=== PATIENT | female | born 1985 | race Hispanic/Latino ===

== ENCOUNTER 2025-03-08 01:06 | Emergency (ER) | payer OTHER, SELFPAY ==
[2025-03-08] VITALS (11 sets, daily range): BP systolic 115–164; BP diastolic 80–102; BMI 18.3
--- NOTE | 2025-03-08 04:09 | EDRN ---
Patient in room, awake. When i entered room she pulled the blanket over her head. She would not respond to any questions, offered drink, food and restroom, patient would not respond.
--- NOTE | 2025-03-08 05:34 | EDRN ---
crisis into see patient, pt offered very little information, was not staying awake for questions. pt did agree to blood draw, iv cath inserted w/o incident.
[2025-03-08 05:46] LABS: Hematocrit 33.4 % (37.0-47.0); Hemoglobin 11.3 g/dL (12.0-16.0); Mean Corp Hgb Conc. 33.8 g/dL (33.0-37.0); Mean Corpuscular Volume 88.4 fL (81.0-99.0); Nucleated Red Blood Cells % 0 %; Platelet Count 236 10^3/uL (130-400); Red Cell Dist. Width 12.5 % (11.5-14.5)
[2025-03-08 06:00] LABS: HCG, Serum Qualitative Screen Negative
[2025-03-08 06:04] LABS: ALT (SGPT) 16 U/L (0-35); AST (SGOT) 18 U/L (14-36); Albumin 4.2 g/dl (3.5-5.0); Alkaline Phosphatase 54 U/L (38-126); Blood Urea Nitrogen 17 mg/dl (7-17); Calcium 9.1 mg/dl (8.4-10.2); Carbon Dioxide 24 mmol/L (22-30); Chloride 109 mmol/L (98-107); Estimated Creatinine Clearance 89 ml/min; Glucose 68 mg/dl (70-99); Potassium 3.9 mmol/L (3.5-5.1); Sodium 139 mmol/L (135-145); Total Protein 6.8 g/dl (6.3-8.2); eGFR > 60.00
--- NOTE | 2025-03-08 07:09 | ED.GENMED ---
History of Present Illness
<Bharathi Bernal, DO - Last Filed: 03/09/25 22:34>
General
Chief Complaint: Weakness
Source: patient, ambulance crew and police
Time Seen by Provider: 03/08/25 04:44
Nursing documentation reviewed up to this point in time: agreed with
History of Present Illness
History of Present Illness:
Note:
CHIEF COMPLAINT(S)
Uncooperative behavior and suspected homelessness.
HISTORY OF PRESENT ILLNESS
The patient is a 39-year-old female who was brought to the emergency department by police. She was found in an uncooperative state, possibly homeless. According to the police, she was at a utility box and was non-compliant with their requests to
move along. The patient has not been communicative about any symptoms or specific needs. There is no reported history of alcohol consumption or drug use at the time of presentation. The police have informed that she is medically clear for discharge.
ADDITIONAL HISTORY OBTAINED FROM SOURCES OTHER THAN THE PATIENT
Per the police, the patient was found near a utility box and was non-compliant with their attempts to move her. She was cited and brought to the emergency department for evaluation. The police have no further medical history or additional
information regarding the patient.
SOCIAL DETERMINANTS AFFECTING HEALTH
The patient appears to be homeless. Efforts to communicate and obtain further social history have been unsuccessful due to the patient�s uncooperative behavior.
PHYSICAL EXAM
General: Alert but uncooperative, no acute distress noted., uncooperative
Skin: Warm, dry.
Head: Normocephalic, atraumatic.
Neck: Supple, trachea midline.
Eye, Ears, Nose, Mouth and Throat: Oral mucosa moist.
Cardiovascular: Normal peripheral perfusion, No edema.
Respiratory: Respirations are non-labored.
Gastrointestinal: Abdomen nondistended.
Back: Normal range of motion, Normal alignment.
Musculoskeletal: Normal range of motion, normal strength.
Neurological: Alert and oriented to person, reluctant to engage in more detailed assessment.
Psychiatric: Appears uncooperative, mood and affect difficult to assess.
PLAN
The patient is medically clear for discharge as per police report. Recommendations include providing information on local shelters or resources for homelessness. Further psychiatric evaluation could be beneficial should the patient become
cooperative.
DIFFERENTIAL DIAGNOSIS
The Differential Diagnosis includes, in no particular order and is not limited to:
1. Acute Psychiatric Episode
2. Substance Use Disorder
3. Delirium
4. Dementia
5. Depression
6. Acute Stress Reaction
7. Alcohol Withdrawal
8. Anxiety Disorder
9. Personality Disorder
10. Schizophrenia
Disposition:
SUMMARY OF ENCOUNTER
The patient, a 39-year-old female, was brought to the emergency department by police after being found uncooperative near a utility box. She was not communicative regarding symptoms or specific needs. The police confirmed that the patient was
medically clear for discharge. She appeared to be homeless, which was a social determinant affecting her health. Efforts to obtain further history were unsuccessful due to her uncooperative behavior. After evaluation, the patient was deemed
uncooperative throughout much of the day and was ultimately discharged home.
DISPOSITION
Discharge.
PLAN
The patient is medically cleared for discharge. Recommendations include providing information on local shelters or resources for homelessness. Further psychiatric evaluation could be beneficial should the patient become cooperative.
MEDICAL DECISION MAKING
-Complexity of Data Reviewed: Chronic conditions affecting care [Social determinants of health; homelessness]. Differential diagnosis included Acute Psychiatric Episode, Substance Use Disorder, Delirium, Dementia, Depression, Acute Stress Reaction,
Alcohol Withdrawal, Anxiety Disorder, Personality Disorder, Schizophrenia.
-Data:
Category 2
Clinical information was obtained from an independent historian: Input from police regarding the patients medical clarity for discharge.
-Risk: Care significantly affected by Social Determinants of Health: The patients apparent homelessness impacted her overall management and disposition decisions.
DIAGNOSIS
Uncooperative behavior, Z91.19; Homelessness, Z59.0.
Past History
<Bharathi Bernal DO - Last Filed: 03/09/25 22:34>
Past History
ED Past Medical History: CVA, Seizures, Psychiatric (Prior suicide attempt, anxiety, depression) and Other (Cerebral palsy, schizencephaly L frontal)
ED Past Surgical History: ( x 2)
Social History
Tobacco: Non-smoker
Alcohol: None
Drug: None
Living: with family
Employment: Employed
Family History
Family History: CAD
Phy Exam
<Bharathi Bernal, DO - Last Filed: 03/09/25 22:34>
Physical Exam
Physical Exam:
.
Course
<Bharathi Bernal, DO - Last Filed: 03/09/25 22:34>
Orders/Labs/Results
Orders:
Orders
03/08/25 04:57
Crisis Consult Urgent
Reason for Consult: mh issues
03/08/25 05:22
Cardiac Monitoring- Treatment ONCE
IV Insert/Care/Rem.- Treatment PRN
Pulse Ox/spot Check [RESP] Urgent
Quantity: 1
03/08/25 05:23
Test Result ONCE
03/08/25 05:27
Alcohol Urgent
Complete Blood Count/With Diff Urgent
Comprehensive Metabolic Panel Urgent
HCG, Serum Qualitative Screen Urgent
Comment: Notify provider if positive test present
03/08/25 10:18
Case Management Consult ONCE
Case Management Consult: Discharge Planning
Abnormal Lab Results
03/08/25
05:27
RBC 3.78 L 10^6/uL
(4.20-5.40)
Hgb 11.3 L g/dL
(12.0-16.0)
Hct 33.4 L %
(37.0-47.0)
Eosinophils % 7.5 H %
(0-6)
Chloride 109 H mmol/L
(98-107)
Creatinine 0.5 L mg/dL
(0.6-1.0)
Glucose 68 L mg/dl
(70-99)
03/08/25 05:27
03/08/25 05:27
Vital Signs
Initial and Last Documented VS:
Initial Vital Signs
Temp Pulse Resp BP Pulse Ox
98.2 F 54 16 164/96 100
03/08/25 01:15 03/08/25 01:15 03/08/25 01:15 03/08/25 01:15 03/08/25 01:15
Last Documented Vital Signs
Temp Pulse Resp BP Pulse Ox
98.2 F 96 16 124/92 100
03/08/25 01:15 03/08/25 11:15 03/08/25 02:19 03/08/25 11:00 03/08/25 10:00
<Felipe Pizarro MD - Last Filed: 03/08/25 12:07>
Orders/Labs/Results
Orders:
Orders
03/08/25 04:57
Crisis Consult Urgent
Reason for Consult: mh issues
03/08/25 05:22
Cardiac Monitoring- Treatment ONCE
IV Insert/Care/Rem.- Treatment PRN
Pulse Ox/spot Check [RESP] Urgent
Quantity: 1
03/08/25 05:23
Test Result ONCE
03/08/25 05:27
Alcohol Urgent
Complete Blood Count/With Diff Urgent
Comprehensive Metabolic Panel Urgent
HCG, Serum Qualitative Screen Urgent
Comment: Notify provider if positive test present
03/08/25 10:18
Case Management Consult ONCE
Case Management Consult: Discharge Planning
Abnormal Lab Results
03/08/25
05:27
RBC 3.78 L 10^6/uL
(4.20-5.40)
Hgb 11.3 L g/dL
(12.0-16.0)
Hct 33.4 L %
(37.0-47.0)
Eosinophils % 7.5 H %
(0-6)
Chloride 109 H mmol/L
(98-107)
Creatinine 0.5 L mg/dL
(0.6-1.0)
Glucose 68 L mg/dl
(70-99)
03/08/25 05:27
03/08/25 05:27
Vital Signs
Initial and Last Documented VS:
Initial Vital Signs
Temp Pulse Resp BP Pulse Ox
98.2 F 54 16 164/96 100
03/08/25 01:15 03/08/25 01:15 03/08/25 01:15 03/08/25 01:15 03/08/25 01:15
Last Documented Vital Signs
Temp Pulse Resp BP Pulse Ox
98.2 F 96 16 124/92 100
03/08/25 01:15 03/08/25 11:15 03/08/25 02:19 03/08/25 11:00 03/08/25 10:00
<Bharathi Bernal DO - Last Filed: 03/09/25 22:34>
*Pulse Oximetry
SaO2: 100
Oxygen Mode of Delivery: Room air
Patient hypoxic: no
*Critical Care Note
Total Time (30-74mins, 75-104mins- exclusive of procedures): Not Applicable
<Felipe Pizarro MD - Last Filed: 03/08/25 12:07>
Update Note
Update Note:
1015.... Patient sleeping but arousable and alert. Will speak. Slight slurred speech. States she has no acute complaints. States she came up here yesterday for a court appearance. States she has nowhere to live at this time. Appears medically
stable. Will get case management involved. Seen by case management. Patient is medically stable. Mom is coming to [place]le pumper
ED Attending Note
<Bharathi Bernal, DO - Last Filed: 03/09/25 22:34>
-
Portions of this chart may have been created with voice recognition software.� Occasional wrong word or��sound alike� substitutions may have occurred due to the inherent limitations of voice recognition software.
Discharge Plan
Departure
Patient Disposition: Home (Routine Discharge)
Date of Disposition: 03/08/25
Time of Disposition: 12:06
Patient with high blood pressure during this ER visit?: Yes
Discharge Problem:
Transient mental status change
Prescriptions:
No Action
cyclobenzaprine 10 MG tablet
10 mg PO TIDPRN PRN (Reason: muscle spasms)
silver sulfadiazine [SSD] 400 GRAM cream
1 applic topical BID
haloperidol 5 MG tablet
5 mg PO DAILYPRN PRN (Reason: taken@ 1700, if hearing voices)
haloperidol 5 MG tablet
5 mg PO BID@0700,1200
quetiapine 100 MG tablet
200 mg PO HS
trazodone 150 MG tablet
150 mg PO HS
hydroxyzine HCl 25 MG tablet
25 mg PO DAILYPRN PRN (Reason: allergies)
albuterol sulfate 1 PUFF HFA aerosol inhaler
1 puff inhalation R Q4HPRN PRN (Reason: sob/wheeze)
fluticasone propionate 1 SPRAY spray,suspension
1 spray intranasal DAILYPRN PRN (Reason: allergies)
aripiprazole 10 MG tablet
10 mg PO HS
clonazepam 1 MG tablet
2 mg PO TID
diazepam [Valium] 10 MG tablet
10 mg PO Q4 PRN (Reason: pain)
carbamazepine 100 MG tablet extended release 12 hr
200 mg PO BID Qty: 60 0RF
lacosamide [Vimpat] 100 MG tablet
100 mg PO BID Qty: 60 0RF
cyclobenzaprine 10 MG tablet
10 mg PO TIDPRN PRN (Reason: muscle pain) Qty: 13 0RF
ibuprofen 600 MG tablet
600 mg PO Q6HPRN PRN (Reason: pain) Qty: 20 0RF
albuterol sulfate [Proventil HFA] 90 MCG/PUFF HFA aerosol inhaler
1 puff inhalation Q4HPRN PRN (Reason: shortness of breath) Qty: 1 0RF
Referrals:
UNKNOWN,NO INTERVIEW [Family Provider]
Activity Restrictions/Additional Instructions:
Follow-up with your regular physician
Return with any concerning issues including weakness fever chills chest pain shortness of breath suicidal ideation or plan or any other concerning issues
Interventions
Interventions:
*Risk Screen - Suicide Last Done: 03/08/25 01:22
*General Assessment Last Done: 03/08/25 01:22
*Neglect/Abuse Screening Last Done: 03/08/25 01:22
*ED- Fall Risk Assessment Last Done: 03/08/25 01:22
*ED COVID-19 Vaccine History Last Done: 03/08/25 01:22
*Nursing Disposition Last Done: 03/08/25 12:10
ED- Cardiac Assessment Last Done: 03/08/25 01:40
ED- Neurological Assessment Last Done: 03/08/25 01:40
ED- Pulmonary Assessment Last Done: 03/08/25 01:40
Discharge Date and Time
Discharge Date/Time: 03/08/25 12:11
Print Language: MOHAWK
--- NOTE | 2025-03-08 12:03 | CM ---
ED CM consult for homelessness
Bedside meeting with pt
She is not known to [facility] per [facility]
Homeless resources provided- she called Homeless Hotline for intake
Multiple calls to her mother pt pt request- no answer or ability to leave VM
Call to father/Valdo [phone]
He will pick pt up from the ED- update to nursing
== END 2025-03-08 12:11 | disposition home or self-care (01) ==
LOC: EMR 01:06
PROVIDERS: EMERGENCY PHYSICIAN Student in an Organized Health Care Education/Training Program
DX: R41.82 Altered mental status, unspecified (principal); F41.9 Anxiety disorder, unspecified; F32.A Depression, unspecified; G80.9 Cerebral palsy, unspecified; Z59.00 Homelessness unspecified; Z91.51 Personal history of suicidal behavior; Z86.73 Personal history of transient ischemic attack (TIA), and cerebral infarction without residual deficits
CPT/HCPCS: 99283; 80053; 82077; 84703; 85025